=== PATIENT | male | born 1975 | race Caucasian/White ===

== ENCOUNTER 2017-11-23 23:34 | Emergency (ER) | payer OTHER ==
[~2017-11-23] VITALS: Ht 182.9 cm; Wt 78.4 kg
[~2017-11-23 23:34] MED LIST: ATIVAN0.5 MG PO; KEPPRA; KEPPRA250 MG PO; TRILEPTAL300 MG PO
[2017-11-24] MEDS ORDERED: PREDNISONE20 MG PO (00:50)
[2017-11-24] MEDS ORDERED: TAMIFLU75 MG PO (00:50)
[2017-11-24] MEDS ORDERED: MOTRIN800 MG PO (00:50)
[2017-11-24 01:48] VITALS: BP 120/76
== END 2017-11-24 01:49 | disposition home or self-care (01) ==
LOC: EME 23:34
DX: J11.1 Influenza due to unidentified influenza virus with other respiratory manifestations (principal); J20.9 Acute bronchitis, unspecified
CPT/HCPCS: 94640; 99281; 99284; J7512

== ENCOUNTER 2018-01-09 21:02 | Emergency (ER) | payer OTHER ==
[~2018-01-09] VITALS: Ht 182.9 cm; Wt 76.5 kg
[~2018-01-09 21:02] MED LIST changes: +MOTRIN800 MG PO; +PREDNISONE20 MG PO; +TAMIFLU75 MG PO
[2018-01-10] MEDS ORDERED: NAPROSYN500 MG PO (00:59)
[2018-01-10] MEDS ORDERED: LIDODERM 5% P1 PATCH TD (00:59)
[2018-01-10 01:32] VITALS: BP 120/91
== END 2018-01-10 01:33 | disposition home or self-care (01) ==
LOC: EME 21:02
DX: S39.012A Strain of muscle, fascia and tendon of lower back, initial encounter (principal); M79.651 Pain in right thigh; M79.652 Pain in left thigh; X58.XXXA Exposure to other specified factors, initial encounter
CPT/HCPCS: 99281; 99284; J1885